=== PATIENT | female | born 2005 | race Caucasian/White ===

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

== ENCOUNTER 2024-03-21 16:02 | Inpatient (IN) | payer MEDICAID, SELFPAY ==
[2024-03-21 16:03] VITALS: BP 133/76; PULSE 71; RESP 16; TEMP 36.9; O2SAT 98; BMI 24.5
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
[2024-03-21 16:38] LABS: Basophils % 0.4 %; Eosinophils # 0.1 10^3/uL (0.0-0.8); Eosinophils % 1.9 %; Hematocrit 40.7 % (36-47); Lymphocytes # 2.4 10^3/uL (1.5-6.5); Lymphocytes % 35.8 %; Mean Corpuscular HGB Conc 32.9 g/dL (30-55); Mean Corpuscular Hemoglobin 26.7 pg (27-33); Mean Corpuscular Volume 81.1 fl (85-98); Mean Platelet Volume 10.2 fL (7.4-10.4); Monocytes # 0.8 10^3/uL (0.2-0.9); Monocytes % 11.1 %; Neutrophils # 3.41 10^3/uL (1.8-8.0); Neutrophils % 50.7 %; Nucleated Red Blood Cells % 0 %; Platelet Count 226 10^3/cmm (157-399); Red Blood Count 5.02 10^6/uL (3.85-5.65); Red Cell Distribution Width 13.2 % (12.1-15.1); White Blood Count 6.74 10^3/uL (4.5-13.0)
[2024-03-21 17:06] LABS: Alanine Aminotransferase 12 U/L (0-33); Albumin Level 4.4 g/dL (3.5-5.2); Alkaline Phosphatase 73 U/L (35-105); Anion Gap 17.1 (5-19); Aspartate Amino Transferase 15 U/L (0-32); Blood Urea Nitrogen 7 mg/dL (6-20); Calcium 9.1 mg/dL (8.5-10.5); Carbon Dioxide 19 mmol/L (22-29); Chloride 108 mmol/L (98-107); Creatinine Clr Calc Pharmacy 124.4361; Globulin 2.7 g/dL (1.3-4.6); Glomerular Filtration Rate 128.8 mL/min (90-130); Glucose 82 mg/dL (65-115); Osmolality Calculated 287 mOsm/kg (285-295); Potassium 4.1 mmol/L (3.5-5.1); Sodium 140 mmol/L (136-145); Total Bilirubin 0.4 mg/dL (0.15-1.2); Total Protein 7.1 g/dL (6.6-8.7)
[2024-03-21 17:15] LABS: Acetaminophen < 5.0 ug/mL (10-30); Alcohol Level < 10 mg/dL (0-10); Salicylate < 0.3 mg/dL (3-10)
[2024-03-21 17:43] LABS: HCG Qualitative Urine. Negative (Negative)
[2024-03-21 18:09] LABS: Amphetamines Screen Urine Negative (Negative); Barbiturates Screen Urine Negative (Negative); Benzodiazepines Screen Urine Negative (Negative); Cocaine Screen Urine Negative (Negative); Opiate Screen Urine Negative (Negative); PCP Screen Urine Negative (Negative); THC Screen Urine Positive (Negative)
[2024-03-21 18:15] VITALS: BP 111/73; PULSE 76; RESP 17; TEMP 36.7; O2SAT 99
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
--- NOTE | 2024-03-21 19:28 | PC.NURSE ---
Patient has nose ring in right nostril. spinning and winding supervisor ZAK Post and decorating and assembly supervisor ZAK Bolaños approved this. Patient refuses to remove jewelry stating that it is a new piercing.
[2024-03-21] MEDS: nicotine 2 mg Gum BUCCAL (20:35)
[2024-03-21 20:50] VITALS: BP 101/71; PULSE 68; RESP 16; TEMP 36.9; O2SAT 97
[2024-03-21] MEDS: trazodone 50 mg Tablet PO (22:01)
[2024-03-22 06:00] VITALS: BP 95/58; PULSE 86; RESP 17; O2SAT 99
[2024-03-22] MEDS: buPROPion SR (12 HR) 100 mg Tablet PO (08:45)
[2024-03-22] MEDS: escitalopram 10 mg Tablet 20 MG PO (08:45)
[2024-03-22] MEDS: pantoprazole DR 40 mg Tablet PO (08:46)
[2024-03-22 14:00] VITALS: BP 101/66; PULSE 71; RESP 18; TEMP 36.9; O2SAT 100
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
[2024-03-22 17:59] VITALS: BP 101/66; PULSE 71; RESP 18; TEMP 36.9; O2SAT 100
== END 2024-03-22 20:10 | disposition home or self-care (01) | DRG 885 ==
LOC: ER 17:04 → NP 17:43
PROVIDERS: Admitting Provider Psychiatry & Neurology Psychiatry; Emergency Provider Emergency Medicine; Visit Provider Psychiatry & Neurology Psychiatry
DX: F33.41 Major depressive disorder, recurrent, in partial remission (principal); R45.851 Suicidal ideations; F94.1 Reactive attachment disorder of childhood; F41.9 Anxiety disorder, unspecified; F12.90 Cannabis use, unspecified, uncomplicated; K21.9 Gastro-esophageal reflux disease without esophagitis; F17.290 Nicotine dependence, other tobacco product, uncomplicated
CPT/HCPCS: 80053; 80306; 80307; 81025; 85025; 97165; 99285